=== PATIENT | male | born 1950 | race Caucasian/White ===

== ENCOUNTER → 2017-08-02 | Outpatient (CLI) | payer OTHER ==
[~2017-08-02] MED LIST: ASTN; ATOR10TA82 PO; CHOL1000 PO; COEN100C11 PO; FISHOIL PO; FLUT0.15; GLUC15002 PO; MAGN250T3 PO; TELM40TA PO
== END | disposition home or self-care (01) ==
LOC: C.LAB 11:28
PROVIDERS: ATTEND Urology
DX: N40.0 Benign prostatic hyperplasia without lower urinary tract symptoms (principal)

== ENCOUNTER → 2018-01-20 | Outpatient (CLI) | payer OTHER ==
--- NOTE | 2018-01-20 18:58 | DIAGNOSTIC IMAGING REPORT ---
R VENOUS DOPP LOWER EXT UNILAT HISTORY: 67 years-old Male M79.661 M79.89 acute pain and swelling of the right lower extremity COMPARISON: None available TECHNIQUE: Multiple real-time sonographic images of the right lower extremity deep venous structures were obtained assessing grayscale appearance, color and spectral flow FINDINGS: Normal flow, phasicity, compressibility and augmentation of the right lower extremity deep venous structures. Mildly complex Díaz's cyst measures 5.7 x 2.5 x 0.8 cm. Additionally, there appears to be a separate mildly complex cystic area within the proximal aspect of the medial calf measuring 4.0 x 2.1 x 0.7 cm without internal vascularity identified. IMPRESSION: 1. No sonographic evidence of deep venous thrombosis. 2. Small Díaz's cyst. Additional minimal complex fluid is noted within the region of the proximal medial calf. Correlate clinically to exclude leaking Díaz's cyst or small soft tissue hematoma. The above report was generated using voice recognition software. It may contain grammatical, syntax or spelling errors. Electronically signed by: Baltazar Gramajo M.D. 01/20/2018 6:56 PM Dictated Date/Time: 01/20/2018 6:54 PM
== END | disposition home or self-care (01) ==
LOC: C.ULTR 17:55
PROVIDERS: ATTEND Internal Medicine
DX: M79.661 Pain in right lower leg (principal); M79.89 Other specified soft tissue disorders

== ENCOUNTER 2024-09-08 15:45 | Observation (INO) ==
--- NOTE | 2024-09-08 16:16 | Emergency Department Note ---
Impression & Plan Syncope, UTI (urinary tract infection), S/P TURP (status post transurethral resection of prostate), Zendejas catheter present ED Provider Note NAME: EDMUND CARPENTER AGE: 74 SEX: M : 1950 ARRIVES VIA: Ambulance INFORMANT: Patient ED PROVIDER(S): Manuelito Mckeon MD CHIEF COMPLAINT: Syncope, feverish/chills, s/p TURP PLAN: Disposition: Admit MEDICAL DECISION MAKING: The patient is a pleasant 74-year-old gentleman with a past medical history of BPH with LUTS who presents to the emergency department via EMS and then accompanied by his for evaluation of syncope which occurred this afternoon following discharge from his outpatient TURP procedure. The patient reports that he was feeling okay when he left following his post procedure observation but when they were arriving home in the car he began to feel nauseated and was sweaty and per his became pale and then unresponsive. She reports that he had put 2 in his mouth after his discharge and when he had passed out he started to gag on this and shake and eventually was able to cough the majority of it out. She reports that when he came to he was still very weak and needed help from his neighbor to help guide him into the house. They report that he had been fasting since yesterday for his procedure. Patient reports he did eat an entire bag of pretzels prior to leaving the hospital. Otherwise denies any recent illness including fevers, chills, cough, congestion, diarrhea. The patient was given Zofran by EMS. Patient reports his nausea has resolved. On my evaluation the patient is fatigued in no acute distress, afebrile with stable vital signs. He appears clinically dry. No focal neurologic deficits. indwelling Zendejas catheter which demonstrates bloody urine. He has no suprapubic fullness or tenderness. EKG without overt acute ischemia. CXR demonstrates suspected nodule versus artifact. Additional linear left lower zonal opacities likely atelectasis. Otherwise no focal consolidation. WBC and platelets within normal limits. H/H 11.9/35.4 decreased from recent but following his recent procedure chemistry without metabolic acidosis. LFTs unremarkable. Electrolytes unremarkable. High-sensitivity troponin 3.2, within normal limits. Lipase is normal. Procalcitonin is not elevated. UA is suspicious for infection with 1+ bacteria and WBCs. IV ceftriaxone ordered. Respiratory BioFire was negative. Given the patient's syncope with feverishness/chills following his TURP patient is agree and prefer admission for observation and further management. Case was discussed with Tracy Young hospitalist, who will evaluate the patient for admission. Further management per admitting team. Triage Nursing notes reviewed and agree them. Prior/external medical records reviewed Vital Signs: reviewed Differential diagnosis: Vasovagal event, dehydration, infection, hypoglycemia, electrolyte abnormalities, cardiac sources, intracerebral event, pulmonary embolism, seizure, toxicologic, neurologic, as well as other pathologies. ER treatment provided: See below. Diagnostics interpreted by me: ECG: Normal sinus rhythm, 67 bpm, no ectopy, nonspecific ST abnormality, no overt ST elevation or depression, QTc 416, QRS 92. Cardiac Monitoring: An order for continuous cardiac monitoring was placed and demonstrated Normal sinus rhythm, 67 bpm, no ectopy. Laboratory studies: See below Imaging studies: See below Consultation(s): Case was discussed with Tracy Young hospitalcaio, who will evaluate the patient for admission. HPI: The patient is a pleasant 74-year-old gentleman with a past medical history of BPH with LUTS who presents to the emergency department via EMS and then accompanied by his for evaluation of syncope which occurred this afternoon following discharge from his outpatient TURP procedure. The patient reports that he was feeling okay when he left following his post procedure observation but when they were arriving home in the car he began to feel nauseated and was sweaty and per his became pale and then unresponsive. She reports that he had put 2 in his mouth after his discharge and when he had passed out he started to gag on this and shake and eventually was able to cough the majority of it out. She reports that when he came to he was still very weak and needed help from his neighbor to help guide him into the house. They report that he had been fasting since yesterday for his procedure. Patient reports he did eat an entire bag of pretzels prior to leaving the hospital. Otherwise denies any recent illness including fevers, chills, cough, congestion, diarrhea. The patient was given Zofran by EMS. Patient reports his nausea has resolved. ROS: See above HPI for pertinent positives & negatives. A total of 10 systems reviewed and were otherwise negative. VITALS:See Below PHYSICAL EXAMINATION: GENERAL: Awake, alert, fatigued-appearing, in no distress HENT: Normocephalic, atraumatic. Oropharynx with dry mucous membranes and otherwise unremarkable. EYES: Normal conjunctiva. Sclera non-icteric. EOMI. No nystamgus. PEARRL. NECK: Supple. No nuchal rigidity. FROM. No JVD. RESPIRATORY: Clear to auscultation. CARDIAC: Regular rate, normal rhythm. Extremities warm and well perfused. Pulses equal. ABDOMEN: Soft, non-distended. No tenderness to palpation. No rebound or guarding. No masses. : Zendejas catheter present. Bloody urine. MUSCULOSKELETAL: Chest examination reveals no tenderness. The back is symmetrical on inspection without obvious abnormality. There is no CVA tenderness to palpation. No joint edema. LOWER EXTREMITIES: Calves are equal size bilaterally and non-tender. No edema. No discoloration. NEURO: Normal sensorium. No sensory or motor deficits noted. 5/5 strength and SILT x 4 extremities. Cerebellar function intact including [id number], alternating palms, [id number]-rh-[id number]. SKIN: No rash or jaundice noted. Manuelito Mckeon MD Past Med/Surg History Problem List Zendejas catheter present (Acute) S/P TURP (status post transurethral resection of prostate) (Acute) UTI (urinary tract infection) (Acute) Syncope (Acute) Syncope and collapse BPH NOS w ur obs/LUTS Hypertrophy of both inferior nasal turbinates Nasal septal deviation Nasal deformity, acquired Increased prostate specific antigen (PSA) velocity Encounter for pre-operative examination Hematuria (Acute) High cholesterol (Chronic) Hypertension (Chronic) Medical History History of gout Bladder stone RA (rheumatoid arthritis) Per records History of COVID-19 (09/2022) Symptoms resolved Increased prostate specific antigen (PSA) velocity monitoring History of squamous cell carcinoma Summer 2019 with excision (Left [place]) Degenerative disc disease Cervical (full ROM per patient), lumbar History of kidney stones 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 Osteoarthritis BPH (benign prostatic hyperplasia) Diverticular disease Acid reflux Hypertension Hyperlipidemia Follows with [facility] cardio Surgical History H/O nephrolithotomy with removal of calculi 1980s S/P cystoscopy cystolithopaxy History of nasal septoplasty History of cardiac catheterization 2019- no stents History of shoulder surgery 12/2020 - right shoulder History of cataract surgery R/L History of blepharoplasty History of tooth extraction History of hernia repair left inguinal and umbilical hernia repair done ([facility]) History of elbow surgery Left History of arthroscopy of right knee x2 History of bowel resection (2006) r/t diverticulitis with micro-perforation ([facility]) History of esophagogastroduodenoscopy (EGD) History of colonoscopy Family History Other Family history of colon cancer in mother No family history of adverse response to anesthesia No family history of bleeding disorder Social History Smoking Status: Never smoker Second Hand Exposure: No; Do You Dip or Chew Tobacco: No; Tobacco Cessation Education Requested by Patient: No Hx Alcohol Use: Yes Alcohol type: wine Hx Substance Use: No Preferred Language: [place] Verdean Communication Ability: Effective Veterinary Livestock Inspector Required: No Beliefs That Will Affect Care: None marital status: Current Living Situation: Spouse and Family current occupational status: retired Other Information That Helps Us Care for You: No Feels Safe at Home: Yes Safety Concerns: Feels Safe At This Time Assistive Devices: None Allergies Allergies Allergy/AdvReac Type Severity Reaction Status Date / Time amoxicillin Allergy Severe Vomiting, Verified 09/08/24 07:47 diarrhea, syncope clavulanic acid Allergy Severe Vomiting, Verified 09/08/24 07:47 diarrhea, syncope metronidazole Allergy Severe Red welts, Verified 09/08/24 07:47 tongue/throat swelling, hives Home Meds Home Medications Medication Instructions Recorded Confirmed telmisartan 40 mg tablet (Micardis) 40 mg PO QAM 02/12/20 09/08/24 saw palm 160 mg-vit E 100 1 tab PO QAM 07/01/23 09/08/24 unit-selen 100 oms-qyns-cgkbmn-pygeum tablet (Prostate Health) cyanocobalamin (vitamin B-12) 1,000 mcg PO 3XWK 08/24/24 09/08/24 1,000 mcg tablet,extended release (Vitamin B-12 ER) magnesium oxide 400 mg PO 3XWK 08/24/24 09/08/24 metoprolol succinate 25 mg 37.5 mg PO QAM 08/24/24 09/08/24 tablet,extended release 24 hr omeprazole 40 mg capsule,delayed 40 mg PO DAILY PRN Heartburn 08/24/24 09/08/24 release tamsulosin 0.4 mg capsule (Flomax) 0.4 mg PO QAM 08/24/24 09/08/24 zinc acetate 50 mg (zinc) capsule 50 mg PO 3XWK 08/24/24 09/08/24 omega 9-joe-reg-fish oil 1,600 5 ml PO DIRECTED 09/08/24 09/08/24 mg-500 mg-800 mg/5 mL oral liquid (Fish Oil) Previous Rx's Medication Instructions Recorded oxybutynin chloride 5 mg tablet 5 mg PO TID PRN bladder spasms #30 03/31/24 tabs oxycodone 5 mg tablet 5 mg PO Q6H PRN pain #7 tabs 09/08/24 Results & Data (ED) Vital Signs Vital Signs - 24 hr 09/08/24 15:55 09/08/24 15:55 09/08/24 16:20 Temperature 36.5 C Temperature Source Oral Pulse Rate 64 63 Pulse Rate [Apical] Pulse Rhythm Pulse Rhythm [Apical] Respiratory Rate 20 Respiratory Effort / Characteristics Non-Labored Spontaneous Respiratory Depth Normal Respiratory Pattern Regular Blood Pressure 117/70 Blood Pressure [Right Arm] Blood Pressure Mean 85 Blood Pressure Mean [Right Arm] Blood Pressure Position Lying Blood Pressure Position [Right Arm] Pulse Oximetry 95 94 Oxygen Delivery Method Room Air Room Air Sepsis Recent Fever Within 48 Hours No Sepsis New/Unexplained Change in Mental Status No Sepsis Action Taken by Nursing No Action Required 09/08/24 16:34 09/08/24 17:43 Temperature Temperature Source Pulse Rate 69 Pulse Rate [Apical] 68 Pulse Rhythm Regular Pulse Rhythm [Apical] Regular Respiratory Rate 18 18 Respiratory Effort / Characteristics Non-Labored Spontaneous Respiratory Depth Normal Respiratory Pattern Regular Blood Pressure Blood Pressure [Right Arm] 106/67 Blood Pressure Mean Blood Pressure Mean [Right Arm] 80 Blood Pressure Position Blood Pressure Position [Right Arm] Lying Pulse Oximetry 95 94 Oxygen Delivery Method Room Air Room Air Sepsis Recent Fever Within 48 Hours Sepsis New/Unexplained Change in Mental Status Sepsis Action Taken by Nursing Laboratory Data Attestation: I reviewed the patient's lab results. 09/08/24 23:08 09/08/24 15:55 Lab Results 09/08/24 09/08/24 09/08/24 Range/Units 15:55 16:41 17:03 WBC 6.79 (4.8-10.8) K/ul RBC 3.85 L (4.70-6.10) M/uL Hgb 11.9 L (14.0-18.0) g/dl Hct 35.4 L (42.0-52.0) % MCV 91.9 (80.0-100.0) fL MCH 30.9 (25.0-34.0) pg MCHC 33.6 (32.0-36.0) g/dL RDW Std Deviation 44.2 (36.4-46.3) fL RDW Coeff of Linda 13.1 (11.5-14.5) % Plt Count 145 (130-400) K/uL MPV 10.5 (9.4-12.4) fL Immature Gran % (Auto) 0.3 % Neut % (Auto) 73.6 % Lymph % (Auto) 13.7 % [place] % (Auto) 9.3 % Eos % (Auto) 2.7 % Baso % (Auto) 0.4 % Neut # (Auto) 5.00 (1.40-6.50) K/uL Lymph # (Auto) 0.93 L (1.20-3.40) K/uL [place] # (Auto) 0.63 H (0.11-0.59) K/uL Eos # (Auto) 0.18 (0.00-0.50) K/uL Baso # (Auto) 0.03 (0.00-0.20) K/uL Immature Gran # (Auto) 0.02 (0.01-0.20) K/uL PT 11.0 (9.0-12.0) Seconds INR 1.0 (0.9-1.1) Sodium 140 (136-145) mmol/L Potassium 3.7 (3.5-5.1) mmol/L Chloride 109 H (98-107) mmol/L Carbon Dioxide 28 (21-32) mmol/L Anion Gap 3 (3-11) BUN 16 (6-23) mg/dl Creatinine 1.03 (0.6-1.4) mg/dl Est Cr Clr Drug Dosing 68.1 ml/min eGFR 75.28 BUN/Creatinine Ratio 15.5 (10-20) Glucose 103 H (70-99(Fasting)) mg/dl Calcium 8.0 L (8.6-10.3) mg/dl Iron 89 (35-175) mcg/dl TIBC 290 (250-450) mcg/dl Transferrin 207 (200-360) mg/dl Transferrin % Sat 31 (20-50) % Ferritin 63.2 (8-388) ng/ml Total Bilirubin 0.5 (0.2-1.0) mg/dl AST 20 (13-39) U/L ALT 18 (7-52) U/L Alkaline Phosphatase 35 (34-104) U/L Troponin I High Sens 3.2 (0-20) pg/ml Total Protein 5.5 L (6.0-8.3) gm/dl Albumin 3.6 (3.4-5.0) gm/dl Globulin 1.9 L (2.5-4.0) gm/dl Albumin/Globulin Ratio 1.9 (0.9-2) Lipase 24 (11-82) U/L Vitamin B12 286 (180-914) pg/ml Folate 11.75 (>5.38) ng/ml Procalcitonin < 0.02 (0-0.5) ng/ml Urine Color Red Urine Appearance Turbid A (Clear) Urine pH 6.5 (4.5-7.5) Ur Specific [place] >= 1.030 (1.000-1.030) Urine Protein 3+ H (Negative) Urine Glucose (UA) Negative (Negative) Urine Ketones Negative (Negative) Urine Blood 3+ H (Negative) Urine Nitrite Negative (Negative) Urine Bilirubin Negative (Negative) Urine Urobilinogen Negative (Negative) Ur Leukocyte Esterase Negative (Negative) Urine RBC >20 H (0-2) /hpf Urine WBC 11-20 H (0-5) /hpf Ur Epithelial Cells 0-2 (0-2) /hpf Urine Bacteria 1+ H (None Seen) Adenovirus (PCR) Not Detected (NotDetected) B. pertussis DNA (PCR) Not Detected (NotDetected) B.parapertussis DNA PCR Not Detected (NotDetected) C. pneumoniae DNA (PCR) Not Detected (NotDetected) Coronavirus OC43 (PCR) Not Detected (NotDetected) Coronavirus HKU1 (PCR) Not Detected (NotDetected) Coronavirus 229E (PCR) Not Detected (NotDetected) SARS-CoV-2 (PCR) Not Detected (NotDetected) Coronavirus NL63 (PCR) Not Detected (NotDetected) Human Metapneumovir PCR Not Detected (NotDetected) Influenza Type A (PCR) Not Detected (NotDetected) Influenza Type B (PCR) Not Detected (NotDetected) M. pneumoniae (PCR) Not Detected (NotDetected) Parainfluenza 1 (PCR) Not Detected (NotDetected) Parainfluenza 2 (PCR) Not Detected (NotDetected) Parainfluenza 3 (PCR) Not Detected (NotDetected) Parainfluenza 4 (PCR) Not Detected (NotDetected) RSV (PCR) Not Detected (NotDetected) Entero/Rhino (PCR) Not Detected (NotDetected) Administered Medications Oxybutynin Chloride (Oxybutynin Chloride 5 Mg Tab) 5 mg PO TID PRN PRN Reason: bladder spasms Stop: 10/08/24 20:33 Last Admin: 09/08/24 22:21 Dose: 5 mg Documented By: ANTON Phenazopyridine HCl (Phenazopyridine Hcl 100 Mg Tab) 100 mg PO TID PRN PRN Reason: bladder spasms Stop: 10/08/24 21:04 Last Admin: 09/08/24 22:21 Dose: 100 mg Documented By: ANTON Discontinued Medications Sodium Chloride (Nss) 1,000 mls @ 999 mls/hr IV .Q1H1M ONE Stop: 09/08/24 17:12 Last Infusion: 09/08/24 20:39 Dose: Infused Documented By: Admin: 09/08/24 16:34 Dose: 999 mls/hr Documented By: CRYSTAL Famotidine (Pepcid 20mg Iv Push) 20 mg in 5 mls @ 2.5 mls/min IV NOW STA Stop: 09/08/24 16:13 Last Admin: 09/08/24 16:33 Dose: 2.5 mls/min Documented By: CRYSTAL Ceftriaxone Sodium (Rocephin) 2,000 mg in 50 mls @ 100 mls/hr IV NOW STA Stop: 09/08/24 18:53 Last Infusion: 09/08/24 20:38 Dose: Infused Documented By: Admin: 09/08/24 18:50 Dose: 100 mls/hr Documented By: ANAYELI Ondansetron HCl (Ondansetron Inj 2 Mg/Ml 2 Ml Vial) 4 mg IV NOW STA Stop: 09/08/24 16:13 Last Admin: 09/08/24 16:34 Dose: Not Given Documented By: CRYSTAL Imaging Data Radiologist's Impression: Chest X-Ray 09/08/24 16:13 EXAM: XR chest 1V portable CLINICAL HISTORY: SYNCOPE WTW TECHNIQUE: An X-ray image of the chest is obtained in AP projection. COMPARISON: No prior studies are available for comparison. FINDINGS: Pulmonary Parenchyma: Right lower zonal mild veiling with a related small nodule that is likely caused by tissue summation for follow-up. Linear small left lower zonal basal opacity likely atelectatic band. Otherwise, the lungs are clear bilaterally. Clear costophrenic angles. Prominent right hilar vessels Heart and Mediastinum: Heart size and shape are normal. No mediastinal widening or masses. No hilar or mediastinal lymphadenopathy. Bony Thorax: The bony thorax appears intact without fractures or deformities. Soft Tissues: Soft tissues overlying the chest wall are unremarkable. IMPRESSION: 1. Right lower zonal mild veiling with a related small nodule that is likely caused by tissue summation for follow-up. 2. Linear small left lower zonal basal opacity likely atelectatic band. 3. Prominent right hilar vessels. Electronically signed by Brenda Canales 09-08-2024 5:28 PM Carotid Doppler Study 09/08/24 18:16 Exam(s): US CAROTID EXAM: US Duplex Bilateral Extracranial Arteries CLINICAL HISTORY: Reason for exam: syncope. TECHNIQUE: Real-time duplex ultrasound scan of the extracranial arteries integrating B-mode two-dimensional vascular structure, Doppler spectral analysis and color flow Doppler imaging. COMPARISON: No relevant prior studies available. FINDINGS: Right common carotid artery: Unremarkable. No occlusion or significant stenosis on color flow and spectral Doppler imaging. Right internal carotid artery: Unremarkable. No occlusion or significant stenosis on color flow and spectral Doppler imaging. Right external carotid artery: Unremarkable. No occlusion or significant stenosis on color flow and spectral Doppler imaging. Right vertebral artery: Unremarkable. Antegrade flow. Right ICA/CCA ratio: Unremarkable. Within normal limits. Left common carotid artery: Unremarkable. No occlusion or significant stenosis on color flow and spectral Doppler imaging. Left internal carotid artery: Unremarkable. No occlusion or significant stenosis on color flow and spectral Doppler imaging. Left external carotid artery: Unremarkable. No occlusion or significant stenosis on color flow and spectral Doppler imaging. Left vertebral artery: Unremarkable. Antegrade flow. Left ICA/CCA ratio: Unremarkable. Within normal limits. Lymph nodes: Unremarkable. No lymphadenopathy. CAROTID STENOSIS REFERENCE USING SRU CRITERIA: Mild - <50% stenosis. ICA PSV is less than 125 cm/second and plaque or intimal thickening is visible. Moderate - 50-69% stenosis. ICA PSV is 125 to 230 cm/second and plaque is visible. Severe - 70-94% stenosis. ICA PSV is more than 230 cm/second and visible plaque with lumen narrowing is seen. Near occlusion - 95-99% stenosis. ICA PSV is variable and significant plaque with luminal narrowing is seen. Occluded - 100% stenosis. No flow identified. IMPRESSION: No hemodynamically significant stenosis Electronically signed by: Dwaine العلي MD 09/08/24 23:39 PM Discharge Plan Visit Data Chief Complaint: Syncope Stated Complaint: SNYCOPE ED Provider: Manuelito Mckeon Discharge Problem: Syncope, UTI (urinary tract infection), S/P TURP (status post transurethral resection of prostate), Zendejas catheter present Patient Disposition: Admitted As Inpatient Discharge Instructions Interventions: ED Discharge Assessment Last Done: 09/08/24 20:05 Discharge Problem: Syncope Qualifiers: Syncope type: unspecified Qualified Code(s): R55 - Syncope and collapse UTI (urinary tract infection) Qualifiers: Urinary tract infection type: acute cystitis Hematuria presence: with hematuria Qualified Code(s): N30.01 - Acute cystitis with hematuria
[2024-09-08] MEDS: FAMOTIDINE 20MG IV PUSH 20 MG/5 ML SYR IV STA (16:33)
[2024-09-08 16:34] LABS: Basophils # (auto) 0.03 K/uL (0.00-0.20); Basophils % (auto) 0.4 %; Eosinophils # (auto) 0.18 K/uL (0.00-0.50); Eosinophils % (auto) 2.7 %; Hematocrit (blood only) 35.4 % (42.0-52.0); Hemoglobin 11.9 g/dl (14.0-18.0); Immature Granulocytes # (auto) 0.02 K/uL (0.01-0.20); Immature Granulocytes % (auto) 0.3 %; Lymphocytes # (auto) 0.93 K/uL (1.20-3.40); Lymphocytes % (auto) 13.7 %; Mean Corpuscular Hemoglobin 30.9 pg (25.0-34.0); Mean Corpuscular Hgb Conc 33.6 g/dL (32.0-36.0); Mean Corpuscular Volume 91.9 fL (80.0-100.0); Mean Platelet Volume 10.5 fL (9.4-12.4); Monocytes # (auto) 0.63 K/uL (0.11-0.59); Monocytes % (auto) 9.3 %; Neutrophils % (auto) 73.6 %; Platelet Count 145 K/uL (130-400); RDW Coefficient of Variation 13.1 % (11.5-14.5); RDW Standard Deviation 44.2 fL (36.4-46.3); Red Blood Count 3.85 M/uL (4.70-6.10); White Blood Count 6.79 K/ul (4.8-10.8)
[2024-09-08] MEDS: ONDANSETRON INJ 2 MG/ML 2 ML VIAL IV STA (16:34)
[2024-09-08] MEDS: SODIUM CHLORIDE 0.9% 1,000 ML IV ONE (16:34)
[2024-09-08 16:49] LABS: Albumin Globulin Ratio 1.9 (0.9-2); Albumin Level 3.6 gm/dl (3.4-5.0); BUN Creatinine Ratio 15.5 (10-20); Bilirubin,Total 0.5 mg/dl (0.2-1.0); Creatinine Clr Calc Pharmacy 68.1 ml/min; Globulin 1.9 gm/dl (2.5-4.0); Potassium 3.7 mmol/L (3.5-5.1); Total Protein 5.5 gm/dl (6.0-8.3)
[2024-09-08 16:55] LABS: Troponin I High Sensitivity 3.2 pg/ml (0-20)
--- NOTE | 2024-09-08 17:28 | XRay Report ---
EXAM: XR chest 1V portable CLINICAL HISTORY: SYNCOPE WTW TECHNIQUE: An X-ray image of the chest is obtained in AP projection. COMPARISON: No prior studies are available for comparison. FINDINGS: Pulmonary Parenchyma: Right lower zonal mild veiling with a related small nodule that is likely caused by tissue summation for follow-up. Linear small left lower zonal basal opacity likely atelectatic band. Otherwise, the lungs are clear bilaterally. Clear costophrenic angles. Prominent right hilar vessels Heart and Mediastinum: Heart size and shape are normal. No mediastinal widening or masses. No hilar or mediastinal lymphadenopathy. Bony Thorax: The bony thorax appears intact without fractures or deformities. Soft Tissues: Soft tissues overlying the chest wall are unremarkable. IMPRESSION: 1. Right lower zonal mild veiling with a related small nodule that is likely caused by tissue summation for follow-up. 2. Linear small left lower zonal basal opacity likely atelectatic band. 3. Prominent right hilar vessels. Electronically signed by Brenda Canales 09-08-2024 5:28 PM
[2024-09-08 17:48] LABS: Adenovirus PCR Not Detected (NotDetected); Bordetella parapertussis PCR Not Detected (NotDetected); Bordetella pertussis PCR Not Detected (NotDetected); Chlamydia pneumoniae PCR Not Detected (NotDetected); Coronavirus 229E PCR Not Detected (NotDetected); Coronavirus CoV-2 (COVID19)PCR Not Detected (NotDetected); Coronavirus HKU1 PCR Not Detected (NotDetected); Coronavirus NL63 PCR Not Detected (NotDetected); Coronavirus OC43PCR Not Detected (NotDetected); Human Metapneumovirus PCR Not Detected (NotDetected); Influenza A PCR Not Detected (NotDetected); Influenza B PCR Not Detected (NotDetected); Mycoplasma pneumoniae PCR Not Detected (NotDetected); Parainfluenza Virus 1 PCR Not Detected (NotDetected); Parainfluenza Virus 2 PCR Not Detected (NotDetected); Parainfluenza Virus 3 PCR Not Detected (NotDetected); Parainfluenza Virus 4 PCR Not Detected (NotDetected); Respiratory Syncytial VirusPCR Not Detected (NotDetected); Rhinovirus/Enterovirus PCR Not Detected (NotDetected)
[2024-09-08 18:06] LABS: Appearance Urine Turbid (Clear); Bilirubin Urine Negative (Negative); Blood Urine 3+ (Negative); Color Urine Red; Glucose Urine UA Negative (Negative); Ketones Urine Negative (Negative); Leukocyte Esterase Urine Negative (Negative); Nitrite Urine Negative (Negative); Protein Urine 3+ (Negative); Specific Gravity Urine >= 1.030 (1.000-1.030); Urobilinogen Urine Negative (Negative); pH Urine 6.5 (4.5-7.5)
--- NOTE | 2024-09-08 18:16 | History & Physical Report ---
Date of Service September 08, 2024 Assessment & Plan (1) Syncope and collapse: (2) BPH NOS w ur obs/LUTS: (3) Hematuria: Plan Mr. Carroll is a 74 year old man with HTN, HLD, diverticulitis s/p colon resection 2006, bladder calculus s/p cystolithalopaxy and BPH now s/p TURP who is admitted for syncope work up. Patient POD 0 Turp with expected post op hematuria; however, question if syncope related to post op anemia v vasovagal v #Syncope potentially vasovagal given prodromal symptoms, also potential orthostasis 2/2 noted drop in hgb -Orthostatic VS ordered ECHO and carotid doppler for completeness Monitor on tele Reports of rigors, CTX empirically follow UA #abnormal UA as expected s/p procedure however with 1+ bacteria and rigors noted previously will start CTX empirically #Acute blood loss anemia #Gross hematuria s/p TURP hgb 14 08/28, hgb 11 on admission anemia studies flush cath prn repeat HH at 1000pm consider urology consult if worsening anemia and symptoms continue oxybutynin prn for spasms #Relative hypotension #HTN iso recent procedure continue metoprolol hold telmisartan, resume as able DVT SCDs admit med tele obs Admission and Anticipated Discharge Date Admission Date: Time spent evaluating patient, direct bedside care, chart review, placing orders, interpretation of diagnostic studies, discussion with consultants, patient, and family members, as well as other required patient management activities is 75 minutes. History of Present Illness Chief Complaint: Syncope Primary Care Provider: Bijan Ortiz MD Mr. Carroll is a 74 year old man with HTN, HLD, diverticulitis s/p colon resection 2006, bladder calculus s/p cystolithalopaxy and BPH now s/p TURP presented to [facility] ED due to syncopal episode. Patient is now s/p TURP POD [address] Fried. He was in the car with his and when he felt nauseated and dizzy. He subsequently passed out for approximately 2 min with no reported jerking like activity or post-ictal like symptoms. Event prompted presentation to ED. Patient took Metoprolol 37.5 mg and tamsulosin this am. Patient states he was otherwise in usual state of health but noted night sweats day prior--which is something similar he experienced with a shoulder infection years ago. He reports some cold sweats during exam, but otherwise no other symptoms. Reports hematuria s/p lundy and procedure, but denies any hematemesis/melena/hematochezia In the ED, vitals were notable for BP of 100-110s HR of 60s, and O2 sat of mid 90s on room air UA 1+ bacteria and WBCs Hgb 11 from 08/28 Imaging revealed potential atelectasis ED interventions: CTX< zofran 1 L NS Patient to be admitted to med/tele for further evaluation and management of syncope Allergies Allergy/AdvReac Type Severity Reaction Status Date / Time amoxicillin Allergy Severe Vomiting, Verified 09/08/24 07:47 diarrhea, syncope clavulanic acid Allergy Severe Vomiting, Verified 09/08/24 07:47 diarrhea, syncope metronidazole Allergy Severe Red welts, Verified 09/08/24 07:47 tongue/throat swelling, hives Home Medications Medication Instructions Recorded Confirmed Type telmisartan 40 mg tablet (Micardis) 40 mg PO QAM 02/12/20 09/08/24 History saw palm 160 mg-vit E 100 1 tab PO QAM 07/01/23 09/08/24 History unit-selen 100 tja-cfld-qzldgq-pygeum tablet (Prostate Health) oxybutynin chloride 5 mg tablet 5 mg PO TID PRN bladder spasms #30 03/31/24 09/08/24 Rx tabs cyanocobalamin (vitamin B-12) 1,000 mcg PO 3XWK 08/24/24 09/08/24 History 1,000 mcg tablet,extended release (Vitamin B-12 ER) magnesium oxide 400 mg PO 3XWK 08/24/24 09/08/24 History metoprolol succinate 25 mg 37.5 mg PO QAM 08/24/24 09/08/24 History tablet,extended release 24 hr omeprazole 40 mg capsule,delayed 40 mg PO DAILY PRN Heartburn 08/24/24 09/08/24 History release tamsulosin 0.4 mg capsule (Flomax) 0.4 mg PO QAM 08/24/24 09/08/24 History zinc acetate 50 mg (zinc) capsule 50 mg PO 3XWK 08/24/24 09/08/24 History omega 3-vev-xao-fish oil 1,600 5 ml PO DIRECTED 09/08/24 09/08/24 History mg-500 mg-800 mg/5 mL oral liquid (Fish Oil) oxycodone 5 mg tablet 5 mg PO Q6H PRN pain #7 tabs 09/08/24 09/08/24 Rx Past Med/Surg History Problem List (Updated 09/08/24 @ 19:14 by Rand Lock MD) Syncope and collapse BPH NOS w ur obs/LUTS Hypertrophy of both inferior nasal turbinates Nasal septal deviation Nasal deformity, acquired Increased prostate specific antigen (PSA) velocity Encounter for pre-operative examination Hematuria (Acute) High cholesterol (Chronic) Hypertension (Chronic) Medical History Acid reflux Bladder stone BPH (benign prostatic hyperplasia) Degenerative disc disease Cervical (full ROM per patient), lumbar Diverticular disease History of COVID-19 (09/2022) Symptoms resolved History of gout History of kidney stones History of squamous cell carcinoma Summer 2019 with excision (Left [place]) Hyperlipidemia Follows with [facility] cardio Hypertension Increased prostate specific antigen (PSA) velocity monitoring Osteoarthritis RA (rheumatoid arthritis) Per records Sarcoidosis of lymph nodes Surgical History H/O nephrolithotomy with removal of calculi 1980s History of arthroscopy of right knee x2 History of blepharoplasty History of bowel resection (2006) r/t diverticulitis with micro-perforation ([facility]) History of cardiac catheterization 2019- no stents History of cataract surgery R/L History of colonoscopy History of elbow surgery Left History of esophagogastroduodenoscopy (EGD) History of hernia repair left inguinal and umbilical hernia repair done ([facility]) History of nasal septoplasty History of shoulder surgery 12/2020 - right shoulder History of tooth extraction S/P cystoscopy cystolithopaxy Family History Other Family history of colon cancer in mother No family history of adverse response to anesthesia No family history of bleeding disorder Social History (Updated 03/26/24 @ 09:56 by Jessica Dallas) Smoking Status: Unknown if ever smoked Second Hand Exposure: No; Do You Dip or Chew Tobacco: No (quit years ago); Hx Alcohol Use: Yes Alcohol type: wine Hx Substance Use: No Preferred Language: Turkmen Communication Ability: Effective International Logistics Coordinator Required: No Beliefs That Will Affect Care: None marital status: Current Living Situation: Spouse current occupational status: retired Feels Safe at Home: Yes Assistive Devices: Glasses Review of Systems Review of Systems: Constitutional: (++ fever/chills, (-) recent loss of weight, (-) appetite changes, (-) night sweats. Head: (-) headache, (-) dizziness. Eye: (-) blurring of vision, (-) double vision, (-) redness. Ear: (-) hearing loss, (-) discharge, (-) vertigo Nose: (-) discharge, (-) bleeding, (-) congestion, (-) post nasal drip. Throat: (-) sore throat, (-) hoarseness of voice, (-) odynophagia. Cardiovascular: (-) chest pain, (-) palpitations, ++ syncope, Respiratory: (-) shortness of breath, (-) cough, (-) wheezing, (-) hemoptysis. Neuro: (-) weakness in extremities, (-) numbness, (-) tingling, (-) tremor. Gastrointestinal: (-) belly pain, (-) belly distension, (-) nausea, (-) vomiting, (-) diarrhea, (-) constipation Genitourinary: (+) hematuria, (-) dysuria, (-) polyuria, (-) hesitancy, Musculoskeletal: (-) myalgia, (-) arthralgia. Skin: (-) rashes. Endocrine: (-) heat/cold intolerance. Psychiatry: (-) depression, (-) hallucination. Physical Exam Physical Exam: GENERAL APPEARANCE: AxOx4, generally well-appearing gentleman HEENT: NC, AT. MMM. EOMI, clear conjunctiva, oropharynx clear. NECK: Supple without lymphadenopathy. No stiffness or restricted ROM. HEART: Normal rate and regular rhythm, normal S1/S1, no m/r/g LUNGS: CTAB, moving air well. No crackles or wheezes are heard. ABDOMEN: Soft, nontender, nondistended with good bowel sounds heard. BACK: No CVAT, no obvious deformity. : gross hematuria EXTREMITIES: Without cyanosis, clubbing or edema. NEUROLOGICAL: Grossly nonfocal. Alert and oriented, moving all 4 extremities. CN not formally tested but appear grossly intact. Skin: Warm and dry without any rash. Results & Data Results & Data Vital Signs (Past 12 Hours) Vital Signs Temp Pulse Pulse Resp BP BP Pulse Ox 09/08/24 17:43 68 18 106/67 94 09/08/24 16:34 69 18 95 09/08/24 16:20 63 09/08/24 15:55 94 09/08/24 15:55 36.5 C 64 20 117/70 95 O2 Del Method 09/08/24 17:43 Room Air 09/08/24 16:34 Room Air 09/08/24 16:20 09/08/24 15:55 Room Air 09/08/24 15:55 Room Air Laboratory Results Short CBC 09/08/24 Range/Units 15:55 WBC 6.79 (4.8-10.8) K/ul Hgb 11.9 L (14.0-18.0) g/dl Hct 35.4 L (42.0-52.0) % Plt Count 145 (130-400) K/uL BMP 09/08/24 15:55 Sodium 140 Potassium 3.7 Chloride 109 H Carbon Dioxide 28 BUN 16 Creatinine 1.03 Glucose 103 H Calcium 8.0 L Liver Function 09/08/24 Range/Units 15:55 Total Bilirubin 0.5 (0.2-1.0) mg/dl AST 20 (13-39) U/L ALT 18 (7-52) U/L Alkaline Phosphatase 35 (34-104) U/L Albumin 3.6 (3.4-5.0) gm/dl Urine 09/08/24 Range/Units 17:03 Urine Color Red Urine Appearance Turbid A (Clear) Urine pH 6.5 (4.5-7.5) Ur Specific [place] >= 1.030 (1.000-1.030) Urine Protein 3+ H (Negative) Urine Glucose (UA) Negative (Negative) Medications Administered Home Medications Medication Instructions Recorded Confirmed Last Taken telmisartan 40 mg tablet (Micardis) 40 mg PO QAM 02/12/20 09/08/24 09/07/24 07:00 saw palm 160 mg-vit E 100 1 tab PO QAM 07/01/23 09/08/24 08/28/24 unit-selen 100 uuc-dhec-pvoqgy-pygeum tablet (Prostate Health) oxybutynin chloride 5 mg tablet 5 mg PO TID PRN bladder spasms #30 03/31/24 09/08/24 Unknown tabs cyanocobalamin (vitamin B-12) 1,000 mcg PO 3XWK 08/24/24 09/08/24 09/04/24 1,000 mcg tablet,extended release (Vitamin B-12 ER) magnesium oxide 400 mg PO 3XWK 08/24/24 09/08/24 08/28/24 metoprolol succinate 25 mg 37.5 mg PO QAM 08/24/24 09/08/24 09/08/24 06:30 tablet,extended release 24 hr omeprazole 40 mg capsule,delayed 40 mg PO DAILY PRN Heartburn 08/24/24 09/08/24 Unknown release tamsulosin 0.4 mg capsule (Flomax) 0.4 mg PO QAM 08/24/24 09/08/24 09/08/24 06:30 zinc acetate 50 mg (zinc) capsule 50 mg PO 3XWK 08/24/24 09/08/24 09/01/24 omega 8-xzc-xth-fish oil 1,600 5 ml PO DIRECTED 09/08/24 09/08/24 08/25/24 mg-500 mg-800 mg/5 mL oral liquid (Fish Oil) oxycodone 5 mg tablet 5 mg PO Q6H PRN pain #7 tabs 09/08/24 09/08/24 Unknown
[2024-09-08 18:18] LABS: Bacteria Urine 1+ (None Seen); Epithelial Cell Urine 0-2 /hpf (0-2); RBC Urine >20 /hpf (0-2)
[2024-09-08] MEDS: cefTRIAXone SODIUM 2,000 MG/50 ML BAG IV STA (18:50)
[2024-09-08 19:06] LABS: Ferritin 63.2 ng/ml (8-388)
[2024-09-08 19:30] LABS: Folate (Folic Acid),Ser orPlas 11.75 ng/ml (>5.38)
[2024-09-08] MEDS ORDERED: oxyCODONE HCL IR 5 MG TAB (IMMEDIATE RELEASE) PO PRN (20:34)
[2024-09-08] MEDS ORDERED: ACETAMINOPHEN 325 MG TAB PO PRN (20:34)
[2024-09-08] MEDS ORDERED: PANTOprazole 40 MG TAB PO PRN (20:36)
[2024-09-08] MEDS: oxyBUTYnin chloride 5 MG TAB PO PRN (22:21)
[2024-09-08] MEDS: PHENAZOPYRIDINE HCL 100 MG TAB PO PRN (22:21)
[2024-09-08 23:36] LABS: Hemoglobin 11.4 g/dl (14.0-18.0)
--- NOTE | 2024-09-08 23:40 | Ultrasound Report ---
Exam(s): US CAROTID EXAM: US Duplex Bilateral Extracranial Arteries CLINICAL HISTORY: Reason for exam: syncope. TECHNIQUE: Real-time duplex ultrasound scan of the extracranial arteries integrating B-mode two-dimensional vascular structure, Doppler spectral analysis and color flow Doppler imaging. COMPARISON: No relevant prior studies available. FINDINGS: Right common carotid artery: Unremarkable. No occlusion or significant stenosis on color flow and spectral Doppler imaging. Right internal carotid artery: Unremarkable. No occlusion or significant stenosis on color flow and spectral Doppler imaging. Right external carotid artery: Unremarkable. No occlusion or significant stenosis on color flow and spectral Doppler imaging. Right vertebral artery: Unremarkable. Antegrade flow. Right ICA/CCA ratio: Unremarkable. Within normal limits. Left common carotid artery: Unremarkable. No occlusion or significant stenosis on color flow and spectral Doppler imaging. Left internal carotid artery: Unremarkable. No occlusion or significant stenosis on color flow and spectral Doppler imaging. Left external carotid artery: Unremarkable. No occlusion or significant stenosis on color flow and spectral Doppler imaging. Left vertebral artery: Unremarkable. Antegrade flow. Left ICA/CCA ratio: Unremarkable. Within normal limits. Lymph nodes: Unremarkable. No lymphadenopathy. CAROTID STENOSIS REFERENCE USING SRU CRITERIA: Mild - <50% stenosis. ICA PSV is less than 125 cm/second and plaque or intimal thickening is visible. Moderate - 50-69% stenosis. ICA PSV is 125 to 230 cm/second and plaque is visible. Severe - 70-94% stenosis. ICA PSV is more than 230 cm/second and visible plaque with lumen narrowing is seen. Near occlusion - 95-99% stenosis. ICA PSV is variable and significant plaque with luminal narrowing is seen. Occluded - 100% stenosis. No flow identified. IMPRESSION: No hemodynamically significant stenosis Electronically signed by: Dwaine العلي MD 09/08/24 23:39 PM
[2024-09-09 04:14] VITALS: O2SAT 93
[2024-09-09 06:23] LABS: Hemoglobin 11.4 g/dl (14.0-18.0); Mean Corpuscular Hemoglobin 30.6 pg (25.0-34.0); Mean Corpuscular Hgb Conc 33.5 g/dL (32.0-36.0); Mean Corpuscular Volume 91.2 fL (80.0-100.0); Mean Platelet Volume 10.5 fL (9.4-12.4); Platelet Count 144 K/uL (130-400); RDW Coefficient of Variation 13.1 % (11.5-14.5); RDW Standard Deviation 43.5 fL (36.4-46.3); Red Blood Count 3.73 M/uL (4.70-6.10); White Blood Count 7.08 K/ul (4.8-10.8)
[2024-09-09 06:34] LABS: BUN Creatinine Ratio 12.1 (10-20); Calcium 8.1 mg/dl (8.6-10.3); Creatinine Clr Calc Pharmacy 69.3 ml/min; Magnesium 1.7 mg/dl (1.7-2.4); Phosphorus 2.9 mg/dl (2.5-4.9); Potassium 4.3 mmol/L (3.5-5.1)
[2024-09-09 07:29] VITALS: BP 99/60; PULSE 73; RESP 18; TEMP 98.8
--- NOTE | 2024-09-09 10:42 | Discharge Summary ---
Discharge Summary Date of Service September 09, 2024 Principal Dx & Hospital Course #1 = Principal Diagnosis (1) Syncope and collapse: (2) BPH NOS w ur obs/LUTS: (3) Hypertension, essential: (4) S/P TURP (status post transurethral resection of prostate): Notes For Next Care Provider Medication Changes From Visit No new medication Admission HPI Per Admitting Provider Patient is a 74-year-old gentleman with history of recent TURP, hypertension and hyperlipidemia who after the TURP, presented with an event of syncope, he expl ained that while sitting in the car, after well he started feeling dizzy and then he passed out for reportedly 2 minutes, then he came around, felt a little foggy but then eventually stabilized, he did not report any chest pain or shortness of breath. He was then brought to the hospital and was placed in observation, EKG did not reveal any abnormality, I reviewed the telemetry monitoring overnight which did not show any finding, echocardiogram was done which also was otherwise unremarkable showing ejection fraction of 60 to 65% with grade 1 diastolic LV dysfunction but otherwise unremarkable. We checked orthostatic and he was not orthostatic. Reviewing all the facts, I feel that the major burden on this event was on anesthetics that was probably given during during his recent TURP, I explained to him that blood pressure medications can cause orthostasis but he was not orthostatic, also Flomax can cause syncope however he has been taking Flomax for a while now. He is also taking oxybutynin which can at times cause dizziness. Overall I did not recommend any change in his medications but I just told him to be more careful. He has to keep himself well-hydrated, he has to continue taking care of his catheter. I am not concerned about the findings of urinalysis as patient has bloody urine at this point and urinalysis is not accurate. He can be otherwise discharged home with follow-up as outpatient. Updated Medication List Medication Instructions Recorded Confirmed Type telmisartan 40 mg tablet (Micardis) 40 mg PO QAM 02/12/20 09/08/24 History saw palm 160 mg-vit E 100 1 tab PO QAM 07/01/23 09/08/24 History unit-selen 100 emo-txmw-hqszal-pygeum tablet (Prostate VoiceBunny) oxybutynin chloride 5 mg tablet 5 mg PO TID PRN bladder spasms #30 07/30/24 01/07/25 Rx tabs cyanocobalamin (vitamin B-12) 1,000 mcg PO 3XWK 08/24/24 09/08/24 History 1,000 mcg tablet,extended release (Vitamin B-12 ER) magnesium oxide 400 mg PO 3XWK 08/24/24 09/08/24 History metoprolol succinate 25 mg 37.5 mg PO QAM 08/24/24 09/08/24 History tablet,extended release 24 hr omeprazole 40 mg capsule,delayed 40 mg PO DAILY PRN Heartburn 08/24/24 09/08/24 History release tamsulosin 0.4 mg capsule (Flomax) 0.4 mg PO QAM 08/24/24 09/08/24 History zinc acetate 50 mg (zinc) capsule 50 mg PO 3XWK 08/24/24 09/08/24 History omega 2-tuu-psi-fish oil 1,600 5 ml PO DIRECTED 09/08/24 09/08/24 History mg-500 mg-800 mg/5 mL oral liquid (Fish Oil) oxycodone 5 mg tablet 5 mg PO Q6H PRN pain #7 tabs 09/08/24 09/08/24 Rx Hospital Stay Data Consultations 09/08/24 18:16 ED Decision to Admit Stat Diagnostic Imagining Performed 09/08/24 18:16 Carotid duplex [US carotid doppler BI] Routine Pending Results Patient Have Any Pending Studies at Discharge: No Discharge Instructions Given to Patient (Per Discharging Provider) Patient to continue following care for his Zendejas catheter I had a long conversation with him about the nature of this particular episode, patient is on antihypertensives which technically can be the cause of orthostasis although patient was not orthostatic here, he does take oxybutynin which can cause dizziness and that he is on Flomax which at times causes syncope, however among all of these I think the most important factor in his case was the fact that he was immediately postprocedural with some element of anesthetics involved in this event. Patient was explained that the benefit of medication at this point is for beyond stopping them so we will proceed with continuing exactly the same medications. Total Time Total Time Spent Total Time Spent (In Minutes): More than 35 minutes
[2024-09-09] MEDS: METOPROLOL SUCC 25MG EXT REL TAB PO SCH (10:46)
[2024-09-09] MEDS ORDERED: cefTRIAXone SODIUM 2,000 MG/50 ML BAG IV SCH (19:00)
--- NOTE | 2024-09-10 06:26 | Electrocardiogram Report ---
Test Reason : Blood Pressure : */* mmHG Vent. Rate : 72 BPM Atrial Rate : 72 BPM P-R Int : 160 ms QRS Dur : 92 ms QT Int : 400 ms P-R-T Axes : 64 44 64 degrees QTcB Int : 438 ms Normal sinus rhythm Nonspecific T wave abnormality Abnormal ECG When compared with ECG of 28-Aug-2024 10:51, No significant change Confirmed by Emerson Salmon ([id number]) on 09/10/2024 6:26:14 AM Referred By: REFERRED SELF Confirmed By: Emerson Salmon
== END 2024-09-09 13:10 | disposition home or self-care (01) ==
LOC: ED 15:45 → 2N 15:45 → SUATTDRO 18:24 → 2N 20:05